=== PATIENT | female | born 1980 | race Two or more races ===

== ENCOUNTER 2020-05-20 05:52 | Emergency (ER) | payer MEDICAID ==
[~2020-05-20] VITALS: Ht 165.1 cm; Wt 119.3 kg
--- NOTE | 2020-05-20 06:09 | NUR ---
PATIENT CAME IN FROM HOME, COMPLAINS OF ABDOMINAL PAIN, STARTED 3 DAYS AGO, PAIN SCALE OF 10/10, SHARP PAIN, LMP 8/12, DENIES NVD, NO ACUTE DISTRESS AT THIS MOMENT, ATTACHED TO MONITOR, SEEN BY DR. CHINCHILLA.
[2020-05-20] MEDS ORDERED: MORPHINE SULFATE INJ 4 MG/ML DISP.SYRIN ONE (06:24)
[2020-05-20] MEDS ORDERED: ONDANSETRON HCL/PF 4 MG/2 ML VIAL ONE (06:24)
[2020-05-20] MEDS ORDERED: MORPHINE SULFATE INJ 2 MG/ML DISP.SYRIN IV ONE (06:30)
[2020-05-20] MEDS ORDERED: ONDANSETRON HCL/PF - ER 4 MG/2 ML VIAL IV ONE (06:30)
[2020-05-20 06:31] LABS: BASOPHILS # (AUTO) 0.1 /CMM (0.0-0.2); BASOPHILS % (AUTO) 0.9 % (0.0-2.0); EOSINOPHILS % (AUTO) 3.2 % (0.0-6.0); HEMATOCRIT 38 % (33-45); HEMOGLOBIN 12.4 g/dL (11.5-14.8); LYMPHOCYTES # (AUTO) 2.2 /CMM (0.8-4.8); LYMPHOCYTES % (AUTO) 26.6 % (20.0-44.0); MEAN CORPUSCULAR HGB CONC 33 g/dl (31.0-36.0); MEAN CORPUSCULAR VOLUME 84 fL (82-100); MONOCYTES # (AUTO) 0.6 /CMM (0.1-1.30); MONOCYTES % (AUTO) 7.4 % (2.0-12.0); NEUTROPHILS % (AUTO) 61.9 % (43.0-81.0); PLATELET COUNT (AUTO) 246 /CMM (150-450); WHITE BLOOD COUNT (AUTO) 8.1 K/uL (4.3-11.0)
--- NOTE | 2020-05-20 06:37 | NUR ---
ULTRASOUND AT BEDSIDE. BLOOD WORKS SEND TO LAB.
[2020-05-20 06:38] LABS: APPEARANCE,URINE CLEAR (CLEAR); BILIRUBIN,URINE NEGATIVE (NEGATIVE); BLOOD, URINE NEGATIVE Ery/uL (NEGATIVE); COLOR,URINE YELLOW (YELLOW); KETONES,URINE NEGATIVE (NEGATIVE); LEUKOCYTE ESTERASE ,URINE NEGATIVE (NEGATIVE); NITRITE, URINE NEGATIVE (NEGATIVE); PROTEIN,URINE NEGATIVE (NEGATIVE); UGLUCOSE NEGATIVE (NEGATIVE); UROBILINOGEN,URINE 0.2 EU/dL (0.2)
[2020-05-20 06:49] LABS: CREATININE 0.5 mg/dL (0.6-1.3); POTASSIUM 3.9 mmol/L (3.5-5.1)
[2020-05-20 06:56] LABS: ALBUMIN 3.6 g/dL (3.4-5.0); BILIRUBIN,DIRECT 0.1 mg/dL (0.0-0.2); BILIRUBIN,TOTAL 0.4 mg/dL (0.2-1.0); TOTAL PROTEIN, SERUM 7.2 g/dL (6.4-8.2)
--- NOTE | 2020-05-20 07:14 | NUR ---
ENDORSED PATIENT TO [facility] FOR CONTINUITY OF CARE.
--- NOTE | 2020-05-20 07:15 | NUR ---
RECEIBED ENDORSEMENT FROM KELSI PALACIO FOR [facility]. PATIENT IN BED AWAKE, HOOKED TO MONITOR. WILL CONTINUE TO MONITOR ACCORDINGLY. Addendum: 05/20/20 at 0746 by STEVO RECEIVED ENDORSEMENT FROM KELSI PALACIO FOR [facility]. PATIENT IN BED AWAKE, HOOKED TO MONITOR. WILL CONTINUE TO MONITOR ACCORDINGLY.
--- NOTE | 2020-05-20 07:32 | NUR ---
PATIENT WHEELED OUT VIA GURNEY FOR CT SCAN.
--- NOTE | 2020-05-20 08:27 | NUR ---
IV removed. Catheter intact and site benign. Pressure and 4x4 applied to site. No bleeding noted.Patient discharged to home in stable condition. Written and verbal after care instructions given. Patient verbalizes understanding of instruction.
[2020-05-20 08:39] VITALS: BP 116/67
== END 2020-05-20 08:28 | disposition home or self-care (01) ==
LOC: ER 05:56
DX: N83.8 Other noninflammatory disorders of ovary, fallopian tube and broad ligament (principal); R10.31 Right lower quadrant pain; R10.32 Left lower quadrant pain
CPT/HCPCS: 36415; 74176; 76856; 80048; 80076; 81001; 84703; 85025; 96374; 96375; 99285; J2270; J2405 ×2; 81000-TC